=== PATIENT | female | born 1970 | race Caucasian/White ===

== ENCOUNTER 2017-11-26 00:17 | Emergency (ER) | payer OTHER ==
[~2017-11-26] VITALS: Ht 154.9 cm; Wt 60.8 kg
[~2017-11-26 00:17] MED LIST: CLINDAMYCIN HC300 MG PO; DYAZIDE 25 MG-31 CAP PO; HYDROCODONE BIT1 T11 PO; Motrin,Rufen800 MG PO; PENICILLIN-VK500 MG PO; ULTRAM50 MG PO
[2017-11-26 00:23] VITALS: BP 177/102
[2017-11-26] MEDS ORDERED: PENICILLIN-VK500 M1 PO (00:43)
[2017-11-26] MEDS ORDERED: ULTRAM50 MG PO (00:45)
== END 2017-11-26 00:54 | disposition home or self-care (01) ==
LOC: ED 00:17
DX: K04.7 Periapical abscess without sinus (principal); Z98.51 Tubal ligation status; Z90.710 Acquired absence of both cervix and uterus

== ENCOUNTER 2019-01-16 15:59 | Inpatient (IN) | payer OTHER ==
[~2019-01-16] VITALS: Ht 156.2 cm; Wt 68.5 kg
--- NOTE | ~2019-01-16 | EKG ---
[place], [place] ELECTROCARDIOGRAM REPORT NAME: TINA PALACIO UNIT #: [id number] ROOM: 503 DOCTOR: SALOMON DRAFT REPORT BIRTHDATE: [birth year] [facility] Test Date: 2019-01-16 Test Time: 17:53:13 Pat Name: TINA PALACIO Department: Room: 503 2 Gender: F Pst Supervisor: Joanne Hdz : [id number] Requested By: DIANNE SOLANO Order Number: [id number] Reading MD: Fermin Poon MD Measurements Intervals [place] Rate: 53 P: 53 NC: 148 QRS: -1 QRSD: 104 T: 11 QT: 445 QTc: 418 Interpretive Statements Sinus rhythm ST elev, probable normal early repol pattern No previous ECG available for comparison Electronically Signed On 01-17-2019 9:19:50 PDT by Fermin Poon MD CM:EKGRPT:ELECTROCARDIOGRAM REPORT [id number] DIANNE PAYNE DRAFT REPORT DIANNE SOLANO DO
[~2019-01-16 15:59] MED LIST changes: +AMOXICILLIN500 M2 PO; +PENICILLIN-VK500 M1 PO
--- NOTE | 2019-01-16 16:55 | NUR ---
48 year old FEMALE admitted to room # 503-2 for stabilization. 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 Compliant with admission procedure. Patient ADMITS TO NAUSEA AND SWEATING See assessment forms for additional information about patient status.
--- NOTE | 2019-01-16 17:19 | NUR ---
PATIENT MEETS [facility]. CINA=19. PATIENT WANTS TO GO TO [facility] IN [place] FOR HER AFTERCARE PLAN. DC STAFF WILL FOLLOW UP WITH PATIENT. JAIMEE DEL RIO B.A. MARKING STITCHER
[2019-01-16 17:34] VITALS: BP 156/83
[2019-01-16 17:49] LABS: BASO # 0.1 10*3/uL (0.0-0.1); BASO % 0.8 % (0.0-1.0); EOS # 0.1 10*3/uL (0.0-0.4); EOS % 2.2 % (1.0-4.0); HEMATOCRIT 46.9 % (37.0-47.0); HEMOGLOBIN 14.9 g/dl (12.0-16.0); LYMPH # 0.8 10*3/uL (1.3-4.4); LYMPH % 13.2 % (27.0-41.0); MEAN CELL VOLUME 90.2 fl (81.0-99.0); MEAN CORPUSCULAR HGB 28.7 pg (27.0-31.0); MEAN CORPUSCULAR HGB CONC 31.8 g/dl (33.0-37.0); MEAN PLATELET VOLUME 11.5 fl (9.6-12.3); MONO # 0.3 10*3/uL (0.1-1.0); MONO % 4.9 % (3.0-9.0); NEUT # 4.9 10*3/uL (2.3-7.9); NEUT % 78.7 % (47.0-73.0); PLATELET COUNT AUTOMATED 282 10*3/uL (130-400); RED CELL DISTRI WIDTH 12.5 % (0-14.5); WHITE BLOOD COUNT 6.3 10*3/uL (4.8-10.8)
[2019-01-16 18:04] LABS: ALBUMIN 3.2 gm/dl (3.1-4.5); ALKALINE PHOSPHATASE 111 U/L (45-117); BUN 8 mg/dl (7-24); CHLORIDE 105 mmol/L (98-107); CREATININE 0.64 mg/dL (0.55-1.02); POTASSIUM 3.8 mmol/L (3.5-5.1); SGOT/AST 14 IU/L (3-35); SGPT/ALT 20 U/L (12-78); SODIUM 141 mmol/L (136-145); TOTAL PROTEIN 7.2 gm/dL (6.4-8.2)
[2019-01-16 18:09] LABS: ETHYL ALCOHOL < 3.0 mg/dl (<3)
--- NOTE | 2019-01-16 19:41 | NUR ---
FIRST SCHEDULED DOSE OF SUBUTEX GIVEN AT THIS TIME. PATIENT WAS RESTING IN BED WITH EYES CLOSED, EASILY AWOKE TO VERBAL STIMULI, TOOK BOTH TABLETS WITHOUT DIFFICULTY, AND DENIES ANY OTHER NEEDS AT THIS TIME. RN WILL CONTINUE TO MONITOR
[2019-01-16 19:45] LABS: BILIRUBIN NEGATIVE (NEGATIVE); BLOOD NEGATIVE (NEGATIVE); CLARITY CLEAR (CLEAR); COLOR YELLOW (YELLOW); GLUCOSE NEGATIVE (NEGATIVE); KETONE 1+ (NEGATIVE); LEUKO ESTERASE 1+ (NEGATIVE); NITRITE NEGATIVE (NEGATIVE); SPECIFIC GRAVITY <= 1.005 (1.005-1.030)
[2019-01-16 19:54] LABS: URINE AMPHETAMINES < 1000 (1000ng/ml); URINE BARBITURATES < 200 (200ng/ml); URINE BENZODIAZEPINES < 200 (200ng/ml); URINE CANNABINOIDS (THC) < 50 (50ng/ml); URINE COCAINE < 300 (300ng/ml); URINE METHADONE < 300 (300ng/ml); URINE OPIATES > 300 (300ng/ml)
[2019-01-16 19:55] LABS: URINE PHENCYCLIDINE < 25 (25ng/ml)
[2019-01-16 19:59] LABS: BACTERIA 1+; EPITHELIAL CELLS 21-30
[2019-01-16 20:00] VITALS: BP 153/67
--- NOTE | 2019-01-16 21:18 | NUR ---
PATIENT MEDICATED WITH ROBAXIN AND REQUIP FOR MULTIPLE WITHDRAWAL COMPLAINTS. STATES SHE HAS MUSCLE ACHES IN HER LEGS WELL RESTLESS LEGS. MEDICATIONS GIVEN, PATIENT ALSO REQUESTING SOMETHING FOR HER STOMACH AND HER ANXIETY. RN WILL MEDICATE ACCORDINGLY
--- NOTE | 2019-01-16 21:34 | NUR ---
MEDICATED WITH TRAZADONE,VISTARIL, AND BENTYL FOR EARLIER COMPLAINTS. RN WILL CONTINUE TO MONITOR FOR RELIEF OF SYMPTOMS
--- NOTE | 2019-01-16 22:55 | NUR ---
MEDICATED WITH MOTRIN FOR CONTINUED COMPLAINTS OF LEG PAIN. RN WILL MONITOR
[2019-01-17] VITALS: BP 147/95
--- NOTE | 2019-01-17 02:25 | NUR ---
PATIENT GIVEN 2ND DOSE OF SUBUTEX AT THIS TIME. PATIENT APPEARS RESTLESS IN BED, BUT IS DENYING ANY NEEDS AT THIS TIME. RN EDUCATED PATIENT ABOUT PRN MEDICATION, BUT PATIENT IS DROWSY AND ALMOST IMMEDIATLEY FELL TO SLEEP AFTER GETTIGN SUBUTEX PILLS IN MOUTH. RN WILL CONTINUE TO MONITOR THIS PATIENT
--- NOTE | 2019-01-17 05:03 | NUR ---
PATIENT RESTING IN BED WITH EYES CLOSED, APPEARS TO BE SLEEPING. NO SIGNS OR SYMPTOMS OF DISTRESS SEEN. NO SIGNS OR SYMPTOMS OF WITH DRAWAL CURRENTLY. RESPIRATIONS ARE QUIET AND UNLABORED ON ROOM AIR. PATIENT VERY FIDGETY IN BED. CALL LGIHT REMAINS WITHIN REACH. RN WILL CONTINUE TO MONITOR
[2019-01-17 08:00] VITALS: BP 123/100
[2019-01-17 12:00] VITALS: BP 114/66
--- NOTE | 2019-01-17 13:55 | NUR ---
REQUIP GIVEN FOR C/O RESTLESS LEGS, ROBAXIN GIVEN FOR C/O GEN. MUSCLE ACHES. WILL MONITOR.
--- NOTE | 2019-01-17 15:00 | NUR ---
REQUIP AND ROBAXIN APPEARS EFFECTIVE. PT RESTING IN BED WITH EYES CLOSED.
[2019-01-17 20:00] VITALS: BP 149/60
[2019-01-18] VITALS: BP 172/77
[2019-01-18 12:00] VITALS: BP 141/70
--- NOTE | 2019-01-18 15:19 | NUR ---
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
== END 2019-01-18 15:19 | disposition left against medical advice (07) | DRG 894 ==
LOC: 5E 15:59
PROVIDERS: Internal Medicine; ADMIT Internal Medicine
DX: F11.23 Opioid dependence with withdrawal (principal); N81.10 Cystocele, unspecified; I10 Essential (primary) hypertension; F17.210 Nicotine dependence, cigarettes, uncomplicated; Z53.21 Procedure and treatment not carried out due to patient leaving prior to being seen by health care provider; Z71.6 Tobacco abuse counseling; Z83.3 Family history of diabetes mellitus; Z84.1 Family history of disorders of kidney and ureter; Z82.49 Family history of ischemic heart disease and other diseases of the circulatory system

== ENCOUNTER 2024-03-02 02:58 | Inpatient (IN) | payer OTHER ==
[~2024-03-02] VITALS: Ht 165.1 cm; Wt 82.6 kg
[2024-03-02] VITALS (18 sets, daily range): BP systolic 82–193; BP diastolic 41–109
[~2024-03-02 02:58] MED LIST changes: +BUPRENORPHINE HY8 MG SL
[2024-03-02] MEDS ORDERED: Naloxone Hydrochloride 2 MG/2 ML SYR ONE (03:19)
[2024-03-02] MEDS ORDERED: SODIUM CHLORIDE 0.9% 1,000 ML IV ONE ×4 (03:29→10:20)
[2024-03-02] MEDS ORDERED: PROPOFOL 100 ML IV ONE (03:46)
[2024-03-02] MEDS ORDERED: Midazolam Hydrochloride 5 MG/5 ML VIAL IV ONE ×3 (03:55→05:40)
[2024-03-02] MEDS ORDERED: PROPOFOL 50 ML IV SCH (04:00)
[2024-03-02] MEDS ORDERED: Midazolam Hydrochloride 5 MG/5 ML VIAL ONE ×2 (04:04→04:46)
[2024-03-02 04:12] LABS: BASO # 0.1 10*3/uL (0.0-0.1); BILIRUBIN Negative (Negative); BLOOD 2+ (Negative); CLARITY Clear (Clear); COLOR Yellow (Yellow); EOS # 0.7 10*3/uL (0.0-0.4); EOS % 6.4 % (1.0-4.0); GLUCOSE 2+ (Negative); HEMATOCRIT 46.1 % (37.0-47.0); KETONE Negative (Negative); LEUKO ESTERASE Negative (Negative); LYMPH # 3.5 10*3/uL (1.3-4.4); LYMPH % 32.9 % (27.0-41.0); MEAN CORPUSCULAR HGB 27.2 pg (27.0-31.0); MEAN CORPUSCULAR HGB CONC 30.6 g/dl (33.0-37.0); MEAN PLATELET VOLUME 11.8 fl (9.6-12.3); MONO # 0.3 10*3/uL (0.1-1.0); MONO % 2.9 % (3.0-9.0); NEUT # 5.9 10*3/uL (2.3-7.9); NEUT % 55.2 % (47.0-73.0); NITRITE Negative (Negative); PH 6.5 (4.5-8.0); PLATELET COUNT AUTOMATED 332 10*3/uL (130-400); RED BLOOD COUNT 5.18 10*6/uL (4.10-5.10); RED CELL DISTRI WIDTH 12.2 % (0-14.5); SPECIFIC GRAVITY 1.015 (1.001-1.030); WHITE BLOOD COUNT 10.7 10*3/uL (4.8-10.8)
[2024-03-02] MEDS ORDERED: Naloxone Hydrochloride 2 MG/2 ML SYR IV ONE (04:15)
[2024-03-02 04:19] LABS: URINE AMPHETAMINES Positive (1000ng/ml); URINE BARBITURATES Negative (200ng/ml); URINE BENZODIAZEPINES Negative (200ng/ml); URINE CANNABINOIDS (THC) Negative (50ng/ml); URINE COCAINE Negative (300ng/ml); URINE METHADONE Negative (300ng/ml); URINE OPIATES Negative (300ng/ml); URINE PHENCYCLIDINE Negative (25ng/ml)
[2024-03-02 04:28] LABS: RBC 21-30 rbc/hpf (0-2)
[2024-03-02 04:29] LABS: BACTERIA TRACE
[2024-03-02 04:42] LABS: ALKALINE PHOSPHATASE 152 U/L (46-116); BUN 11 mg/dl (9-23); CHLORIDE 99 mmol/L (98-107); SGPT/ALT 136 U/L (5-49); TOTAL PROTEIN 6.9 gm/dL (6.0-8.0)
[2024-03-02] MEDS ORDERED: methylPREDNISolone sod succ 125 MG VIAL IV ONE ×2 (04:45→05:00)
[2024-03-02] MEDS ORDERED: Albuterol Sulf/Ipratropium 3 ML VIAL NEB ONE (04:45)
[2024-03-02] MEDS ORDERED: Succinylcholine Chloride 200 MG/10 ML VIAL IV ONE (06:25)
[2024-03-02] MEDS ORDERED: ETOMIDATE 20 MG/10 ML VIAL IV ONE ×2 (06:25→09:16)
[2024-03-02] MEDS ORDERED: BISACODYL 10 MG SUPP R PRN (08:25)
[2024-03-02] MEDS ORDERED: Ondansetron Hydrochloride 4 MG/2 ML VIAL IV PRN (08:25)
[2024-03-02] MEDS ORDERED: ACETAMINOPHEN 650 MG SUPP R PRN (08:25)
[2024-03-02] MEDS ORDERED: ACETAMINOPHEN 325 MG TAB PO PRN (08:25)
[2024-03-02] MEDS ORDERED: BISACODYL 5 MG TAB PO PRN (08:25)
[2024-03-02] MEDS ORDERED: Magnesium Hydroxide 30 ML UDC PO PRN (08:25)
[2024-03-02] MEDS ORDERED: Albuterol Sulfate 2.5 MG/3 ML VIAL NEB SCH (09:00)
[2024-03-02] MEDS ORDERED: Albuterol Sulf/Ipratropium 3 ML VIAL NEB SCH (09:00)
[2024-03-02] MEDS ORDERED: Succinylcholine Chloride 200 MG/10 ML SYRINGE IV ONE (09:16)
[2024-03-02] MEDS ORDERED: Enoxaparin Sodium 40 MG/0.4 ML SYR SC SCH ×2 (10:00→18:00)
[2024-03-02] MEDS ORDERED: Pantoprazole Sodium 40 MG VIAL IV SCH (10:00)
[2024-03-02] MEDS ORDERED: Chlorhexidine Gluconate 15 ML MOUTHWASH T SCH (10:00)
[2024-03-02] MEDS ORDERED: IOHEXOL 350 MG/ML 100 ML VIAL IV ONE (10:40)
[2024-03-02] MEDS ORDERED: SODIUM CHLORIDE 0.9% 100 ML BAG IV ONE (10:40)
[2024-03-02] MEDS ORDERED: HEPARIN SODIUM 250 ML IV SCH ×2 (10:55→16:40)
[2024-03-02 11:01] LABS: ABG BASE EXCESS -0.1 mmol/L (-2.0-3.0); ABG O2 SATURATION 98.8 % (94.0-98.0); ARTERIAL BLOOD GAS PH 7.379 (7.350-7.450)
[2024-03-02 12:14] LABS: ACT PARTIAL THROMBO TIME 23.1 SECONDS (20.0-32.1)
[2024-03-02] MEDS ORDERED: PROPOFOL 100 ML IV SCH (12:55)
[2024-03-02] MEDS ORDERED: DEXTROSE 10 % IN WATER 250 ML IV PRN (14:00)
[2024-03-02] MEDS ORDERED: AZTREONAM 1 GM in SODIUM CHLORIDE 0.9% 100 ML IV SCH (14:00)
[2024-03-02] MEDS ORDERED: INSULIN LISPRO 1 UNIT/0.01 ML SQ SCH (16:30)
[2024-03-02] MEDS ORDERED: Midazolam Hydrochloride 5 MG/5 ML VIAL IV PRN (18:50)
[2024-03-02] MEDS ORDERED: Metoprolol Tartrate 25 MG TAB PO SCH (22:00)
[2024-03-03] VITALS (9 sets, daily range): BP systolic 115–174; BP diastolic 65–85
[2024-03-03 07:20] LABS: BASO % 0.3 % (0.0-1.0); EOS # 0.1 10*3/uL (0.0-0.4); EOS % 0.9 % (1.0-4.0); HEMATOCRIT 42.1 % (37.0-47.0); LYMPH # 1.9 10*3/uL (1.3-4.4); LYMPH % 16.4 % (27.0-41.0); MEAN CORPUSCULAR HGB 27.3 pg (27.0-31.0); MEAN CORPUSCULAR HGB CONC 31.8 g/dl (33.0-37.0); MEAN PLATELET VOLUME 11.9 fl (9.6-12.3); MONO # 0.7 10*3/uL (0.1-1.0); NEUT # 8.6 10*3/uL (2.3-7.9); RED BLOOD COUNT 4.91 10*6/uL (4.10-5.10); RED CELL DISTRI WIDTH 12.9 % (0-14.5); WHITE BLOOD COUNT 11.3 10*3/uL (4.8-10.8)
[2024-03-03 07:24] LABS: MEAN CELL VOLUME 85.7 fl (81.0-99.0); PLATELET COUNT AUTOMATED 215 10*3/uL (130-400)
[2024-03-03 07:49] LABS: ALKALINE PHOSPHATASE 118 U/L (46-116); BUN 10 mg/dl (9-23); CHLORIDE 104 mmol/L (98-107); CHOLESTEROL 193 mg/dL (<200); LDL CHOLESTEROL 100 mg/dL (9-159); POTASSIUM 3.3 mmol/L (3.4-5.1); SGPT/ALT 87 U/L (5-49); TOTAL PROTEIN 5.9 gm/dL (6.0-8.0); TRIGLYCERIDES 233 mg/dl (<150)
[2024-03-03 07:55] LABS: ABG O2 SATURATION 93.7 % (94.0-98.0); ARTERIAL BLOOD GAS PH 7.393 (7.350-7.450); ARTERIAL BLOOD GAS PO2 70.8 mmHg (83.0-108.0)
[2024-03-03] MEDS ORDERED: POTASSIUM CHLORIDE IN WATER 100 ML IV ONE (08:20)
[2024-03-03 08:52] LABS: VITAMIN D, 25-HYDROXY 30.1 ng/mL (30-100)
[2024-03-03] MEDS ORDERED: methylPREDNISolone sod succ 40 MG VIAL IV SCH (10:00)
[2024-03-03] MEDS ORDERED: ASPIRIN, CHEWABLE 81 MG TAB OGT SCH (10:00)
[2024-03-03] MEDS ORDERED: ATORVASTATIN CALCIUM 40 MG TABLET PO SCH (10:00)
[2024-03-03] MEDS ORDERED: AZITHROMYCIN 250 ML IV SCH (10:00)
[2024-03-03] MEDS ORDERED: Buprenorphine Hydrochloride 2 MG TAB SL ONE (13:00)
[2024-03-03] MEDS ORDERED: Buprenorphine Hydrochloride 2 MG TAB SL SCH (22:00)
[2024-03-04] VITALS: BP 139/61
[2024-03-04 04:00] VITALS: BP 128/51
[2024-03-04 05:33] LABS: ALKALINE PHOSPHATASE 105 U/L (46-116); BUN 14 mg/dl (9-23); CHLORIDE 101 mmol/L (98-107); POTASSIUM 3.6 mmol/L (3.4-5.1); SGPT/ALT 59 U/L (5-49); TOTAL PROTEIN 6.1 gm/dL (6.0-8.0)
[2024-03-04 06:16] LABS: BASO % 0.1 % (0.0-1.0); HEMATOCRIT 37.8 % (37.0-47.0); LYMPH # 1.1 10*3/uL (1.3-4.4); LYMPH % 10.7 % (27.0-41.0); MEAN CELL VOLUME 84.6 fl (81.0-99.0); MEAN CORPUSCULAR HGB 27.5 pg (27.0-31.0); MEAN CORPUSCULAR HGB CONC 32.5 g/dl (33.0-37.0); MEAN PLATELET VOLUME 12.5 fl (9.6-12.3); MONO # 0.5 10*3/uL (0.1-1.0); MONO % 4.7 % (3.0-9.0); NEUT # 8.2 10*3/uL (2.3-7.9); PLATELET COUNT AUTOMATED 202 10*3/uL (130-400); RED BLOOD COUNT 4.47 10*6/uL (4.10-5.10); RED CELL DISTRI WIDTH 13.1 % (0-14.5); WHITE BLOOD COUNT 9.8 10*3/uL (4.8-10.8)
[2024-03-04 08:00] VITALS: BP 127/59
[2024-03-04 12:00] VITALS: BP 128/50
[2024-03-04 16:00] VITALS: BP 143/64
[2024-03-04] MEDS ORDERED: predniSONE 20 MG TAB PO SCH (17:00)
[2024-03-04] MEDS ORDERED: PREDNISONE50 MG PO (17:07)
[2024-03-04] MEDS ORDERED: OMNICEF300 MG PO (17:07)
[2024-03-04] MEDS ORDERED: ZITHROMAX250 MG PO (17:07)
[2024-03-04] MEDS ORDERED: NICOTINE POLACRILEX 4 MG (TUBE OF 27 LOZENGES) PO PRN (19:50)
[2024-03-04] MEDS ORDERED: LORazepam 2 MG/ML VIAL IV PRN (19:50)
[2024-03-04] MEDS ORDERED: hydrOXYzine pamoate 25 MG CAP PO ONE (19:55)
[2024-03-04 20:00] VITALS: BP 159/63
[2024-03-05] VITALS: BP 128/84
[2024-03-05 06:06] LABS: BASO % 0.1 % (0.0-1.0); EOS % 0.4 % (1.0-4.0); HEMATOCRIT 36.1 % (37.0-47.0); LYMPH # 2.1 10*3/uL (1.3-4.4); LYMPH % 22.2 % (27.0-41.0); MEAN CELL VOLUME 85.5 fl (81.0-99.0); MEAN CORPUSCULAR HGB 27.7 pg (27.0-31.0); MEAN CORPUSCULAR HGB CONC 32.4 g/dl (33.0-37.0); MEAN PLATELET VOLUME 12.4 fl (9.6-12.3); MONO # 0.6 10*3/uL (0.1-1.0); MONO % 6.8 % (3.0-9.0); NEUT # 6.6 10*3/uL (2.3-7.9); NEUT % 69.9 % (47.0-73.0); PLATELET COUNT AUTOMATED 199 10*3/uL (130-400); RED BLOOD COUNT 4.22 10*6/uL (4.10-5.10); WHITE BLOOD COUNT 9.5 10*3/uL (4.8-10.8)
[2024-03-05 07:16] LABS: BUN 13 mg/dl (9-23); CHLORIDE 102 mmol/L (98-107); POTASSIUM 3.5 mmol/L (3.4-5.1)
[2024-03-05] MEDS ORDERED: AZITHROMYCIN 250 MG TAB PO SCH (10:00)
[2024-03-05] MEDS ORDERED: AZITHROMYCIN 250 MG in SODIUM CHLORIDE 0.9% 250 ML IV SCH (10:00)
== END 2024-03-05 06:04 | disposition short-term general hospital (02) | DRG 720 ==
LOC: ED 02:58 → ICCU 08:17 → EDHOLD 08:17 → ICCU 09:16
PROVIDERS: Internal Medicine; Internal Medicine Pulmonary Disease; Student in an Organized Health Care Education/Training Program; ADMIT Internal Medicine; ATTEND Internal Medicine
PROC: 5A1945Z Respiratory Ventilation, 24-96 Consecutive Hours (ICD-10-PCS; principal; 2024-03-02)
PROC: 5A12012 Performance of Cardiac Output, Single, Manual (ICD-10-PCS; 2024-03-02)
PROC: 0BH17EZ Insertion of Endotracheal Airway into Trachea, Via Natural or Artificial Opening (ICD-10-PCS; 2024-03-02)
DX: A41.9 Sepsis, unspecified organism (principal); N17.0 Acute kidney failure with tubular necrosis; J96.01 Acute respiratory failure with hypoxia; I46.9 Cardiac arrest, cause unspecified; K56.609 Unspecified intestinal obstruction, unspecified as to partial versus complete obstruction; E44.0 Moderate protein-calorie malnutrition; I21.4 Non-ST elevation (NSTEMI) myocardial infarction; F11.29 Opioid dependence with unspecified opioid-induced disorder; N39.0 Urinary tract infection, site not specified; N18.31 Chronic kidney disease, stage 3a; K42.9 Umbilical hernia without obstruction or gangrene; E55.9 Vitamin D deficiency, unspecified; F19.90 Other psychoactive substance use, unspecified, uncomplicated; R79.89 Other specified abnormal findings of blood chemistry; E11.65 Type 2 diabetes mellitus with hyperglycemia; R74.01 Elevation of levels of liver transaminase levels; E11.22 Type 2 diabetes mellitus with diabetic chronic kidney disease; R65.20 Severe sepsis without septic shock; R31.9 Hematuria, unspecified; F15.10 Other stimulant abuse, uncomplicated; Z68.30 Body mass index [BMI] 30.0-30.9, adult; Z88.0 Allergy status to penicillin; Z98.51 Tubal ligation status; Z90.710 Acquired absence of both cervix and uterus; Z83.3 Family history of diabetes mellitus